=== PATIENT | male | born 1950 | race African-American/Black ===

== ENCOUNTER 2019-03-27 09:11 | Emergency (ER) | payer OTHER ==
[~2019-03-27] VITALS: Ht 180.3 cm; Wt 79.4 kg
[~2019-03-27 09:11] MED LIST: CIPROFLOXACIN500 M1 PO; DOXYCYCLINE 10100 MG PO; FLOMAX PO; FLOMAX0.4 MG PO; LEVOTHYROXIN0.112 M1 PO; NORCO 5-325 TA1 EACH PO; NORVASC 5 MG TAB5 MG PO; ONDANSETRON HCL4 M2 PO; PERCOCET 5-3251 EACH PO; PREDNISONE 20 M20 MG PO; SIMCOR 1,000-41 EACH PO; SIMVASTATIN40 MG PO; TAMSULOSIN HCL0.4 M1 PO; TESSALON PERLE100 MG PO; VICODIN PO; ZOFRAN4 MG PO
[2019-03-27 09:50] LABS: ABSOLUTE NEUTROPHILS 5.6 thou/uL (1.4-8.2); BASOPHILS 0.6 % (0.0-2.0); EOSINOPHILS 1.2 % (0.0-3.0); HEMATOCRIT 44.2 % (42.0-52.0); HEMOGLOBIN 14.7 gm/dL (14.0-18.0); LYMPHOCYTES 19.6 % (24.0-44.0); MCH 28.9 pg (26.0-34.0); MCHC 33.2 g/dL (28.0-37.0); MCV 87.1 fL (80.0-100.0); MONOCYTES 7.6 % (1.0-8.0); RBC 5.07 mil/uL (4.50-6.00); RDW 14.5 % (10.5-14.5); WBC 7.9 thou/uL (4.0-11.0)
[2019-03-27 09:52] LABS: URINE BILIRUBIN NEGATIVE (Negative); URINE BLOOD 3+ (Negative); URINE CLARITY CLEAR; URINE COLOR YELLOW; URINE GLUCOSE-RANDOM* NEGATIVE (Negative); URINE KETONES NEGATIVE (Negative); URINE LEUKOCYTES-REFLEX NEGATIVE (Negative); URINE NITRITE-REFLEX NEGATIVE (Negative); URINE PROTEIN (DIPSTICK) TRACE (Negative)
[2019-03-27 09:54] LABS: CALCIUM 10.2 mg/dL (8.5-10.1); CREATININE 1.1 mg/dL (0.7-1.3); POTASSIUM 4.1 mmol/L (3.5-5.1)
[2019-03-27 09:59] LABS: ALBUMIN 3.8 g/dL (3.4-5.0); DIRECT BILIRUBIN 0.3 mg/dL (<0.1-0.3); TOTAL BILIRUBIN 1.9 mg/dL (<0.1-1.0); TOTAL PROTEIN 6.9 g/dL (6.4-8.2)
[2019-03-27 10:00] LABS: SQUAMOUS 0-3 Few /LPF (0-3)
[2019-03-27 10:01] LABS: BACTERIA-REFLEX None Seen /HPF (None Seen); CASTS None Seen /LPF (None Seen); CRYSTALS None Seen /LPF (None Seen); MUCUS 0-3 Light strn/LPF (None Seen); URINE RBC >20 Many /HPF (0-2); URINE WBC-REFLEX 0-5 Rare /HPF (0-5)
[2019-03-27 10:35] LABS: LARGE PLATELETS FEW; PLATELET COUNT 119 thou/uL (150-400); PLATELET ESTIMATE SLIGHTLY DECREASED
[2019-03-27] MEDS ORDERED: ZOFRAN ODT4 MG PO (11:27)
[2019-03-27] MEDS ORDERED: NORCO 5-325 TA1 EACH PO (11:27)
[2019-03-27 12:48] VITALS: BP 106/58
== END 2019-03-27 13:22 | disposition home or self-care (01) ==
LOC: ER 09:11
PROVIDERS: Emergency Medicine
DX: N20.1 Calculus of ureter (principal); E03.9 Hypothyroidism, unspecified; E78.5 Hyperlipidemia, unspecified; Z88.0 Allergy status to penicillin; Z87.442 Personal history of urinary calculi

== ENCOUNTER → 2019-04-14 | Outpatient (CLI) | payer OTHER ==
[~2019-04-14] MED LIST changes: +ZOFRAN ODT4 MG PO
--- NOTE | 2019-04-15 09:34 | EKG ---
[place] [address] [place] [address] ELECTROCARDIOGRAM REPORT Name: JUAN VALENTIN Room #: REG CLI Ck#: [id number] ������������������ Admission: 04/14/19 ������������������ Attend Phys: Henrry Vernon MD Discharge: ������������������ Date of : 52 Report #: [id number] ����������������������������������������������������������������� [id number] THIS REPORT FOR: //name// [facility] Test Date: 2019-04-14 Test Time: 13:51:52 Pat Name: JUAN VALENTIN Department: Room: Gender: M Pearl Maker: YURIY : 1950 Requested By: Henrry Vernon Order Number: [id number] MD: Izaiah Zarate Measurements Intervals [place] Rate: 80 P: 23 HI: 152 QRS: 33 QRSD: 80 T: 57 QT: 359 QTc: 415 Interpretive Statements Sinus rhythm Probable left atrial enlargement Abnormal R-wave progression, early transition Left ventricular hypertrophy Baseline wander in lead(s) V3 Compared to ECG 01/26/2012 08:00:37 No significant changes Electronically Signed On 04-15-2019 9:34:17 CDT by Izaiah Zarate [email or web address] ��������������������������������������������� <ELECTRONICALLY SIGNED> ���������������������������������������� By: Izaiah Zarate MD ��������������������������������������������� 04/15/19 0934 1351 1351 Izaiah Zarate MD /NERI
== END | disposition home or self-care (01) ==
LOC: LITH 13:28
DX: N20.0 Calculus of kidney (principal); E78.00 Pure hypercholesterolemia, unspecified; Z90.49 Acquired absence of other specified parts of digestive tract; Z98.890 Other specified postprocedural states; Z79.899 Other long term (current) drug therapy; Z88.0 Allergy status to penicillin; Z87.442 Personal history of urinary calculi; Z80.42 Family history of malignant neoplasm of prostate